=== PATIENT | male | born 1945 | race Caucasian/White ===

== ENCOUNTER → 2020-09-20 | Outpatient (CLI) | payer MEDICARE | LOC: LAB 15:40 → LAB SHORT 15:40 | PROVIDERS: Family Medicine | DX: F41.9 Anxiety disorder, unspecified (principal); G89.4 Chronic pain syndrome; Z79.899 Other long term (current) drug therapy | CPT/HCPCS: G0480 ==

== ENCOUNTER → 2021-05-01 | Outpatient (CLI) | payer MEDICARE | END | disposition home or self-care (01) | LOC: LAB SHORT 18:52 | PROVIDERS: Family Medicine | DX: Z51.81 Encounter for therapeutic drug level monitoring (principal); Z79.899 Other long term (current) drug therapy | CPT/HCPCS: G0480 ==